=== PATIENT | male | born 1965 | race American Indian/Alaskan Native ===

== ENCOUNTER 2019-11-05 12:22 | Inpatient (IN) ==
--- NOTE | 2019-11-05 12:49 | Emergency Department Note ---
Upper Extremity HPI - General Chief Complaint: Extremity Injury, Upper Stated Complaint: infection in left hand Time Seen by Provider: 11/05/19 12:25 Source: patient Mode of arrival: ambulatory Limitations: no limitations - History of Present Illness HPI Narrative: 54-year-old male patient referred to the emergency department from the [facility] for worsening infection to the left hand. Patient is to be evaluated by the orthopedic surgeon (Dr. Ochoa) for possible surgical debridement later today. Patient tells me he injured his hand approximately week ago. During his initial work-up he was noted to have a large laceration over the third MCP and a mildly displaced dorsal cortical fracture, likely arise from the third metacarpal head. He was seen at the [facility] in follow-up today with worsening redness, swelling, purulent drainage, decreased range of motion, and pain. A review that medical note indicates that they contacted Dr. Ochoa for consultation. At that time he requested the patient be transferred to [facility] for surgical management. Upon arrival, patient complains of 9/10 pain to the injury site. He denies systemic fever, sweats, chills. He denies shortness of breath. He denies retrosternal chest pain or palpitations. He admits to some mild nausea but no vomiting. He denies diarrhea. He denies any radiculopathy to the affected hand. He denies any focal weakness. He admits to a past medical history of hypertension. He denies history of type 2 diabetes, dyslipidemia, or breathing issues. - Related Data Allergies Allergy/AdvReac Type Severity Reaction Status Date / Time No Known Drug Allergies Allergy Unverified 11/05/19 12:26 Review of Systems All systems ED: reviewed and negative except as stated. Past Medical History - Social History smoking status: Smokeless tobacco Physical Exam Limitations: no limitations General appearance: alert, in no apparent distress Shoulder: Present: normal inspection, full ROM Arm: Present: normal inspection, full ROM Elbow: Present: normal inspection, full ROM Forearm/Wrist: Present: normal inspection, full ROM Hand: Present: tenderness (Exquisite tenderness palpation throughout the entire left third MCP joint), swelling (Swelling extended throughout the third MCP joint up into the finger and into the dorsum of the hand), laceration (Small laceration measuring approximately 1 cm to the third MCP. Active purulent drainage noted), erythema (Considerable erythema extending from the dorsum of the left hand up into the middle finger and into the adjacent second and fourth MCP joints.). Absent: normal inspection, full ROM, ecchymosis, deformity, crepitus, dislocation Neuromotor: Normal: other (Considerably decreased range of motion to all fingers of the affected hand.) Neurosensory: Normal: other (Sensation grossly intact light touch throughout the left hand) Vascular: Normal: capillary refill (Less than 2 seconds), radial pulse (Present and bounding.) Neurological: Present: alert, oriented X3 Psychiatric: Present: normal affect, normal mood Skin: Present: warm, dry, other (Skin changes to the left hand is mentioned) Course Course Narrative: Patient was brought into the emergency department and a focused history and physical exam performed. Affected area was covered with gauze dressing. Warren DINH arrived at the bedside to help coordinate surgical care. IV was started and patient was given normal saline 1000 mL as a bolus. Routine presurgical labs were drawn. Patient was given Dilaudid 0.5 mg IVP. Review his laboratory studies show the following: CBC WBC 11.3, all others normal limits. BMP glucose 107, all others normal limits. C-reactive protein 8.1. ESR 19. After reviewing all the data I discussed these findings with the patient. He is currently resting comfortably on the emergency room rfrederick awaiting surgery. He is afebrile and stable his vital signs. We are going to continue to observe him in the emergency department until he is taken away for surgery. Once patient leaves emergency department he will be under the care of the hospitalist service (Dr. Sierra) and the orthopedic surgeon (Dr. Ochoa). All further treatment decisions and modalities will be carried out by them. Vital Signs Temperature 97.4 F 11/05/19 12:23 Pulse Rate 85 11/05/19 12:23 Respiratory Rate 18 11/05/19 12:23 Blood Pressure 159/89 11/05/19 12:23 Pulse Oximetry (%) 98 11/05/19 12:23 Temperature 97.4 F 11/05/19 12:23 Pulse Rate 85 11/05/19 12:23 Respiratory Rate 18 11/05/19 12:23 Blood Pressure 159/89 11/05/19 12:23 Pulse Oximetry (%) 98 11/05/19 12:23 Extremity Injury, Upper - Lab Data Lab results reviewed: Yes I reviewed the patient's lab results. Result diagrams: 11/05/19 12:40 11/05/19 12:40 Lab Results 11/05/19 11/05/19 Range/Units 12:40 12:40 WBC 11.3 H (4.50-11.00) K/mcL RBC 5.48 (4.63-6.08) M/mcL Hgb 15.1 (13.7-17.5) g/dL Hct 45.8 (40.1-51.0) % MCV 83.6 (80.0-100.0) fL MCH 27.6 (26.0-34.0) pg MCHC 33.0 (31.0-36.0) g/dL RDW 14.5 (11.5-14.5) % Plt Count 269 (140-440) K/mcL MPV 9.4 (7.4-10.4) fL Gran % 62.7 (38.0-78.0) % Lymph % (Auto) 27.9 (15.5-49.0) % [place]aine % (Auto) 7.1 (1.0-12.0) % Eos % (Auto) 1.9 (0.0-7.0) % Baso % (Auto) 0.4 (0.0-2.0) % Gran # 7.10 (1.80-8.00) K/mcL Lymph # (Auto) 3.16 (1.50-4.80) K/mcL [place]aine # (Auto) 0.81 (0.10-0.90) K/mcL Eos # (Auto) 0.22 (0.00-0.70) K/mcL Baso # (Auto) 0.05 (0.00-0.30) K/mcL Differential Comment * ESR 19 H (0-15) mm/hr Sodium 138 (133-145) mmol/L Potassium 3.8 (3.3-5.1) mmol/L Chloride 100 (96-108) mmol/L Carbon Dioxide 28 (22-30) mmol/L Anion Gap 10.0 (8-16) BUN 16 (6-20) mg/dl Creatinine 0.7 (0.7-1.2) mg/dl GFR Calculation 107 Glucose 107 H (70-105) mg/dL Calcium 8.7 (8.6-10.4) mg/dl C-Reactive Protein 8.1 H (0.0-0.8) mg/dl Disposition Pt seen by OTM CONSULTANT/PA only: Yes Clinical Impression: Infected hand, Fracture of metacarpophalangeal (MCP) joint Disposition: Xfer As Outpt/Obs ([facility]) Condition: Good Additional Instructions: Patient is go to be transferred down to the operating room for surgical debridement of the infected left hand. Afterward, patient will be admitted to the hospital. All further treatment decisions and modalities to be carried out by both the hospitalist service and the orthopedic surgeon. Referrals: No,PCP [Primary Care Provider] -
[2019-11-05] MEDS ORDERED: HYDROmorphone 2 MG/ML VIAL IM ONE (13:14)
[2019-11-05] MEDS ORDERED: 0.9 % SODIUM CHLORIDE 1,000 ML IV ONE (13:14)
[2019-11-05] MEDS ORDERED: HYDROmorphone 2 MG/ML VIAL IV ONE (13:25)
--- NOTE | 2019-11-05 13:41 | History and Physical Report ---
DATE OF ADMISSION: 11/05/2019 HISTORY OF PRESENT ILLNESS: The patient is a 54-year-old male who was seen in the emergency room at [facility] today for an infection of the left hand. He was evaluated by the emergency room and Dr. Ochoa was consulted for surgical intervention due to infectious tenosynovitis. Patient currently denies any chest pain, shortness of breath, fevers, chills, abdominal pain, bowel/bladder changes, or any other acute symptoms. PAST MEDICAL HISTORY: History of hypertension. ALLERGIES: NKDA. SURGICAL HISTORY: Multiple orthopaedic surgeries including an ORIF of the left fourth metacarpal. SOCIAL HISTORY: He uses chewing tobacco; no smoking history. ROS: 10 point system reviewed and negative except as documented in the HPI. PHYSICAL EXAMINATION: VITAL SIGNS: Temperature 97.4, pulse 85, respiratory rate 18, blood pressure 159/89, pulse ox 98% on room air. GENERAL: No acute distress. Patient is resting comfortably in bed. HEENT: Head: AT/NC. EENT: EOMs intact. Cranial nerves grossly II-XII intact. Throat: No lymphadenopathy, no thyromegaly. Uvula is midline. NECK: Supple, soft. No tenderness. CHEST: Clear to auscultation bilaterally. Symmetrical excursion. HEART: Regular rate and rhythm. No murmurs, rubs, or gallops. ABDOMEN: Soft, supple. No guarding, no tenderness, no masses, no hepatosplenomegaly. EXTREMITIES: Extremities normal except the left hand shows an infection of the third dorsal compartment of the hand. Over the MCP joint there is a laceration that extends approximately 3 cm in length with draining purulence. Erythema extends up to the PIP joint of the third finger and into the mid shaft of the metacarpal. Patient is able to extend and flex the finger at the PIP and DIP joints. He is neurovascularly intact throughout the entire hand and capillary refill is less than 2 seconds throughout the hand and including the third finger. RADIOGRAPHIC STUDIES: There is a small avulsion fracture of the dorsal portion of the third metacarpal at the MCP joint. No lytic changes, no other acute findings. ASSESSMENT: Infectious tenosynovitis of the third dorsal compartment of the left hand. PLAN: Patient is healthy and I explained the plan to the patient to include surgical intervention with irrigation and drainage of the third dorsal compartment. Dr. Ochoa will be the surgeon. Patient will be admitted afterwards for IV antibiotics and will be discharged to follow up with [facility] for postoperative care. He will be placed on antibiotics per Infectious Disease and the hospitalist. KT:fitz Job ID: [id number] Doc ID: [id number] Jac RIZVI
[2019-11-05 13:44] LABS: Blood Urea Nitrogen 16 mg/dl (6-20); C-Reactive Protein 8.1 mg/dl (0.0-0.8); Calcium 8.7 mg/dl (8.6-10.4); Carbon Dioxide 28 mmol/L (22-30); Chloride 100 mmol/L (96-108); Glomerular Filtration Rate 107; Glucose 107 mg/dL (70-105)
[2019-11-05 14:10] LABS: Basophils # (Auto) 0.05 K/mcL (0.00-0.30); Basophils % (Auto) 0.4 % (0.0-2.0); Eosinophils # (Auto) 0.22 K/mcL (0.00-0.70); Eosinophils % (Auto) 1.9 % (0.0-7.0); Granulocytes % (Auto) 62.7 % (38.0-78.0); Hematocrit 45.8 % (40.1-51.0); Hemoglobin 15.1 g/dL (13.7-17.5); Lymphocytes # (Auto) 3.16 K/mcL (1.50-4.80); Lymphocytes % (Auto) 27.9 % (15.5-49.0); Mean Cell Volume 83.6 fL (80.0-100.0); Mean Platelet Volume 9.4 fL (7.4-10.4); Monocytes # (Auto) 0.81 K/mcL (0.10-0.90); Monocytes % (Auto) 7.1 % (1.0-12.0); Platelet Count 269 K/mcL (140-440); RBC 5.48 M/mcL (4.63-6.08); Red Cell Distribution Width 14.5 % (11.5-14.5); WBC 11.3 K/mcL (4.50-11.00)
[2019-11-05 14:21] LABS: Erythrocyte Sedimentation Rate 19 mm/hr (0-15)
[2019-11-05] MEDS ORDERED: ceFAZolin 2 GM in DEXTROSE 5% IN WATER 50 ML IV SCH (15:30)
[2019-11-05 16:10] LABS: Appearance,Urine CLEAR; Color,Urine YELLOW; Culture Indicated,Urine NO; Glucose,Urine (UA) NEGATIVE (NEG); Ketones,Urine 20 mg/dL (NEG); Leukocyte Esterase,Urine NEG /uL (NEG); Nitrate,Urine NEG (NEG); Protein,Urine NEG (NEG); Specific Gravity,Urine 1.027 (1.000-1.035); Urine Blood NEG mg/dL (<0.03)
[2019-11-05 16:11] LABS: Ictotest,Urine POS (NEG)
[2019-11-05] MEDS ORDERED: LIDOCAINE HCL/PF 100 MG/5 ML SYRINGE IV ONE (16:15)
[2019-11-05] MEDS ORDERED: ONDANSETRON 4 MG/2 ML VIAL IV ONE (16:15)
[2019-11-05] MEDS ORDERED: PROPOFOL 200 MG/20 ML VIAL IV ONE (16:15)
[2019-11-05] MEDS ORDERED: KETAMINE 100 MG/ML ML IV ONE (16:15)
[2019-11-05] MEDS ORDERED: fentaNYL 100 MCG/2 ML VIAL IV ONE (16:15)
[2019-11-05] MEDS ORDERED: IPRATROPIUM/ALBUTEROL 3 ML AMPUL.NEB NEB PRN (17:00)
[2019-11-05] MEDS ORDERED: LACTATED RINGERS 1,000 ML IV SCH (17:00)
[2019-11-05] MEDS ORDERED: ACETAMINOPHEN 1,000 MG/100 ML BOTTLE IV ONE (17:00)
[2019-11-05] MEDS ORDERED: MEPERIDINE 25 MG/ML SYRINGE IV PRN (17:00)
[2019-11-05] MEDS ORDERED: KETOROLAC 30 MG/ML VIAL IV PRN (17:00)
[2019-11-05] MEDS ORDERED: HYDROmorphone 2 MG/ML VIAL IV PRN (17:00)
[2019-11-05] MEDS ORDERED: ONDANSETRON 4 MG/2 ML VIAL IV PRN ×2 (17:00→17:21)
[2019-11-05] MEDS ORDERED: BENZOCAINE/MENTHOL 1 LOZENGE PO PRN (17:21)
--- NOTE | 2019-11-05 17:29 | Discharge Summary ---
Ortho Discharge Plan - General - Patient Instructions Diet: Regular Diet Activity: activity as tolerated Dressing Care: Cover dressing in shower Additional Instructions: Patient is go to be transferred down to the operating room for surgical francisca ridement of the infected left hand. Afterward, patient will be admitted to the hospital. All further treatment decisions and modalities to be carried out by both the hospitalist service and the orthopedic surgeon. - Follow Up Plan Follow Up Appointments: No,PCP [Primary Care Provider] - Mike Ochoa MD [Physician] - 11/12/19 (Follow up [facility] 11/12/19) Disposition: Home, Self-Care Prognosis: Good Rehab Potential: Good I certify that the patient requires SNF services: No Overall status at discharge: patient is back to baseline (Discharge 11/08/19) - Orders For Discharge Prescriptions: Hydrocodone/APAP 7.5/325Mg [[place] 7.5-325Mg] 1 - 2 tab PO Q4-6HP PRN #65 tab PRN Reason: Pain Prescription Printed
--- NOTE | 2019-11-05 17:34 | Brief Operative Note ---
Date of procedure: 11/05/19 Pre-op diagnosis: L Hand dorsal abscess, Septic MF MCP Joint, MF Metacarpal Osteomyelitis Post-op diagnosis: same Procedure: 1. Debridement and irrigation left hand dorsal abscess 2. Debridement and irrigation left hand extensor tendon sheath 3. Debridement and irrigation left middle finger MCP joint 4. Debridement and irrigation left middle finger metacarpal osteomyelitis Grafts/Implants: No Anesthesia: GLMA Findings: As above Complications: none Surgeon: Mike Ochoa Estimated blood loss (cc): 5 Tourniquet Time (Minutes): 45 Specimens Removed/Pathology: other (Aerobic/Anaerobic cultures of left hand dorsal abscess and middle finger metacarpal osteomyelitis) Condition: stable Disposition: PACU
[2019-11-05] MEDS: fentaNYL 100 MCG/2 ML VIAL IV PRN ×2 (18:00→18:04)
[2019-11-05] MEDS: PIPERACILLIN SODIUM/TAZOBACTAM 4.5 GM in DEXTROSE 5% IN WATER 50 ML IV SCH (21:15)
[2019-11-05] MEDS: HYDROCODONE/APAP 7.5/325MG TABLET PO PRN (21:16)
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
[2019-11-05] MEDS ORDERED: NICOTINE 21 MG PATCH TOPICAL ONE (21:55)
[2019-11-05] MEDS: 0.9 % SODIUM CHLORIDE 10 ML SYRINGE IV SCH (23:03)
[2019-11-06] MEDS: HYDROCODONE/APAP 7.5/325MG TABLET PO PRN ×5 (01:10→19:34)
[2019-11-06] MEDS: PIPERACILLIN SODIUM/TAZOBACTAM 4.5 GM in DEXTROSE 5% IN WATER 50 ML IV SCH ×3 (04:09→21:59)
[2019-11-06] MEDS: 0.9 % SODIUM CHLORIDE 10 ML SYRINGE IV SCH ×3 (04:10→21:59)
--- NOTE | 2019-11-06 08:13 | XRay Report ---
HISTORY: Postop incision and drainage of the left hand FINDINGS: The hand is immobilized in a plaster cast which obscures fine bone detail. There is moderate soft tissue swelling along the dorsal side of the hand and there is a drain in this region of soft tissue thickening. There is a healed fracture in the fourth metacarpal. A metal plate is secured to the dorsal side of the bone using multiple screws. There is no bone erosion or periosteal elevation. Joint space between the scaphoid and lunate is abnormally widened, indicating disruption of the intercarpal ligament. Moderate size spur is seen in the head of the first metacarpal. The adjacent joint space is normal in width. Third metacarpal phalangeal joint space is narrowed. IMPRESSION: Cellulitis and along the dorsal aspect of the hand. No abscess is identified. Interpreted and Authenticated by: Martín Hull 11/06/19
--- NOTE | 2019-11-06 17:02 | Orthopedic Progress Note ---
Subjective Patient information: Note initiated : 11/06/19 at 5:00 pm Service Date, if different from initiated Date: [] Patient: Yony Gutierrez 54 y/o M admitted on 11/05/19 for I&D Left Hand. Chief Complaint: [] Principal diagnosis: Left Middle Finger Septic MCP Joint and Metacarpal Osteomyelitis Interval history: Patient doing well, good pain control, no fevers or chills, taking po well Objective Vital signs: Vital Signs Temp Pulse Pulse Resp BP Pulse Ox 11/06/19 16:00 99.8 F H 94 H 18 142/91 97 11/06/19 11:24 98.6 F 92 H 16 149/92 92 11/06/19 08:00 18 11/06/19 07:35 98.5 F 88 20 141/84 94 11/06/19 03:22 98.5 F 94 H 16 142/84 96 11/05/19 23:02 98.2 F 98 H 20 144/95 96 11/05/19 20:02 98.4 F 87 131/78 95 11/05/19 19:33 98 H 138/82 92 11/05/19 19:17 128/86 96 11/05/19 19:02 88 127/85 93 11/05/19 18:48 97 H 129/66 93 11/05/19 18:31 98.4 F 90 133/87 92 11/05/19 18:15 98.9 F 91 H 19 142/81 98 11/05/19 18:06 91 H 22 152/85 92 11/05/19 18:00 95 H 19 157/99 93 11/05/19 17:55 94 H 15 162/91 94 11/05/19 17:50 94 H 19 158/99 94 11/05/19 17:45 90 20 146/88 93 11/05/19 17:40 90 21 146/88 93 11/05/19 17:35 91 H 19 142/95 96 11/05/19 17:30 91 H 14 146/92 96 11/05/19 17:25 83 17 139/81 100 11/05/19 17:23 98.4 F 84 12 134/83 93 Intake and Output 11/06/19 11/06/19 11/06/19 05:59 13:59 21:59 Intake Total 1490 1040 50 Output Total 166 394 0495 Balance 590 190 -1450 Intake: IV 100 50 Zosyn 4.5 gm In Dextrose 5% in 100 50 Water 50 ml @ 100 mls/hr IV Q8H JAKI Rx#:[id number] Oral 1390 1040 Output: Void Amount 802 051 4091 Other: Meal Lunch Lunch Percent of Meal Consumed 100% 75% Feeding Ability Independent Independent Urine Appearance Clear Clear Clear Urine Color Dark Yellow Dark Yellow Light Fiona Urine Odor Normal Strong Weight 228 lb Patient Weight 11/07/19 05:59 Weight 228 lb Intake & Output: Intake & Output 11/06/19 11/06/19 11/06/19 05:59 13:59 21:59 Intake Total 1490 1040 50 Output Total 303 905 9301 Balance 590 190 -1450 Weight 228 lb Intake: IV 100 50 Zosyn 4.5 gm In Dextrose 5% in 100 50 Water 50 ml @ 100 mls/hr IV Q8H JAKI Rx#:[id number] Oral 1390 1040 Output: Void Amount [phone] Other: Meal Lunch Lunch Percent of Meal Consumed 100% 75% Feeding Ability Independent Independent Urine Appearance Clear Clear Clear Urine Color Dark Yellow Dark Yellow Light Fiona Urine Odor Normal Strong Dressing: Yes clean, Yes dry, Yes intact, Yes splint in place Neurological exam IM: Yes oriented X3, Yes neurovascular intact - Labs CBC & BMP: 11/05/19 12:40 11/05/19 12:40 Labs: 11/05/19 12:40 Hgb 15.1 Hct 45.8 Assessment and Plan - Narrative A/P Narrative: Assessment: POD#1 s/p I&D left dorsal hand abscess, suppurative extensor tenosynovitis, middle finger septic MCP joint and middle finger metacarpal acute osteomyelitis, doing well. Improved pain control. Tolerating IV antibiotics Plan: 1. IV antibiotics as per Hospitalist 2. Continue left hand and finger RIM exercises 3. Dressing change and drain D/C 11/08/19
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
[2019-11-06] MEDS ORDERED: DOCUSATE SODIUM 100 MG CAPSULE PO PRN (21:00)
[2019-11-06] MEDS ORDERED: MAGNESIUM HYDROXIDE 30 ML ORAL.SUSP PO PRN (22:48)
[2019-11-07] MEDS: HYDROCODONE/APAP 7.5/325MG TABLET PO PRN ×6 (00:29→22:30)
[2019-11-07] MEDS: PIPERACILLIN SODIUM/TAZOBACTAM 4.5 GM in DEXTROSE 5% IN WATER 50 ML IV SCH ×3 (06:03→22:30)
[2019-11-07] MEDS: 0.9 % SODIUM CHLORIDE 10 ML SYRINGE IV SCH ×3 (06:03→22:31)
[2019-11-07 06:56] LABS: ALT/SGPT 31 U/l (0-40); AST/SGOT 20 U/l (0-37); Albumin 3.3 gm/dL (3.2-5.2); Albumin/Globulin Ratio 0.9 (1.0-2.3); Alkaline Phosphatase 67 U/L (39-117); Bilirubin,Total 0.5 mg/dL (0.0-1.0); Blood Urea Nitrogen 10 mg/dl (6-20); Calcium 8.9 mg/dl (8.6-10.4); Carbon Dioxide 29 mmol/L (22-30); Chloride 97 mmol/L (96-108); Globulin 3.5 gm/dL (2.2-3.7); Glomerular Filtration Rate 96; Glucose 110 mg/dL (70-105)
[2019-11-07 07:42] LABS: Basophils # (Auto) 0.05 K/mcL (0.00-0.30); Basophils % (Auto) 0.4 % (0.0-2.0); Eosinophils # (Auto) 0.25 K/mcL (0.00-0.70); Granulocytes % (Auto) 64.2 % (38.0-78.0); Hematocrit 45.1 % (40.1-51.0); Hemoglobin 14.5 g/dL (13.7-17.5); Lymphocytes # (Auto) 2.93 K/mcL (1.50-4.80); Lymphocytes % (Auto) 23.2 % (15.5-49.0); Mean Cell Volume 85.1 fL (80.0-100.0); Mean Corpuscular HGB Conc 32.2 g/dL (31.0-36.0); Monocytes # (Auto) 1.29 K/mcL (0.10-0.90); Monocytes % (Auto) 10.2 % (1.0-12.0); Platelet Count 379 K/mcL (140-440); Red Cell Distribution Width 14.9 % (11.5-14.5); WBC 12.6 K/mcL (4.50-11.00)
[2019-11-07] MEDS: LISINOPRIL 10 MG TABLET PO SCH (08:53)
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
--- NOTE | 2019-11-07 12:25 | Orthopedic Progress Note ---
Subjective Patient information: Note initiated : 11/07/19 at 12:21 pm Service Date, if different from initiated Date: [] Patient: Yony Gutierrez 54 y/o M admitted on 11/05/19 for I&D Left Hand. Chief Complaint: [] Principal diagnosis: Left Middle Finger Septic MCP Joint and Metacarpal Osteomyelitis Interval history: Patient doing well, improved pain control, up ambulating, no fevers or chills. Eating lunch Objective Vital signs: Vital Signs Temp Pulse Resp BP Pulse Ox 11/07/19 08:00 98.3 F 79 18 117/74 97 11/07/19 04:05 98.2 F 83 16 122/78 97 11/06/19 22:40 98.8 F 105 H 20 133/90 96 11/06/19 18:57 98.6 F 103 H 20 164/91 95 11/06/19 16:00 99.8 F H 94 H 18 142/91 97 Intake and Output 11/06/19 11/07/19 11/07/19 21:59 05:59 13:59 Intake Total 50 750 50 Output Total 1900 700 200 Balance -1850 50 -150 Intake: IV 50 50 50 Zosyn 4.5 gm In Dextrose 5% in 50 50 50 Water 50 ml @ 100 mls/hr IV Q8H [facility] Rx#:[id number] Oral 700 Output: Void Amount 1900 700 200 Other: Meal Dinner Percent of Meal Consumed 100% Feeding Ability Independent Urine Appearance Clear Clear Clear Urine Color Light Fiona Bright Yellow Bright Yellow Urine Odor Strong Normal Normal Weight 240 lb Intake & Output: Intake & Output 11/06/19 11/07/19 11/07/19 21:59 05:59 13:59 Intake Total 50 750 50 Output Total 1900 700 200 Balance -1850 50 -150 Weight 240 lb Intake: IV 50 50 50 Zosyn 4.5 gm In Dextrose 5% in 50 50 50 Water 50 ml @ 100 mls/hr IV Q8H [facility] Rx#:[id number] Oral 700 Output: Void Amount 1900 700 200 Other: Meal Dinner Percent of Meal Consumed 100% Feeding Ability Independent Urine Appearance Clear Clear Clear Urine Color Light Fiona Bright Yellow Bright Yellow Urine Odor Strong Normal Normal Dressing: Yes clean, Yes dry, Yes intact, Yes splint in place Weight bearing status: full Neurological exam IM: Yes oriented X3, Yes motor sensory intact, Yes neurovascular intact - Labs CBC & BMP: 11/07/19 04:54 11/07/19 04:54 Labs: 11/07/19 11/05/19 04:54 12:40 Hgb 14.5 15.1 Hct 45.1 45.8 Assessment and Plan - Narrative A/P Narrative: Assessment: POD#2 s/p I&D left dorsal hand abscess, suppurative extensor tenosynovitis, middle finger septic MCP joint and middle finger metacarpal acute osteomyelitis, doing well. Improved pain control. Tolerating IV antibiotics Plan: 1. IV antibiotics as per Hospitalist 2. Continue left hand and finger ROM exercises 3. Dressing change and drain D/C 11/08/19 4. Awaiting Hospitalist recommendations on discharge antibiotic regimen
[2019-11-07] MEDS: NICOTINE 14 MG PATCH TOPICAL SCH (12:48)
[2019-11-08] MEDS: HYDROCODONE/APAP 7.5/325MG TABLET PO PRN ×6 (02:41→23:54)
[2019-11-08] MEDS: 0.9 % SODIUM CHLORIDE 10 ML SYRINGE IV SCH ×4 (05:23→21:20)
[2019-11-08] MEDS: PIPERACILLIN SODIUM/TAZOBACTAM 4.5 GM in DEXTROSE 5% IN WATER 50 ML IV SCH ×2 (05:23→13:44)
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
[2019-11-08] MEDS: NICOTINE 14 MG PATCH TOPICAL SCH (09:01)
[2019-11-08] MEDS: LISINOPRIL 10 MG TABLET PO SCH (09:01)
--- NOTE | 2019-11-08 16:09 | Orthopedic Progress Note ---
Subjective Patient information: Note initiated : 11/08/19 at 4:05 pm Service Date, if different from initiated Date: [] Patient: Yony Gutierrez 54 y/o M admitted on 11/05/19 for I&D Left Hand. Chief Complaint: [] Principal diagnosis: Left Middle Finger Septic MCP Joint and Metacarpal Osteomyelitis Interval history: No changes, good pain control Objective Vital signs: Vital Signs Temp Pulse Resp BP Pulse Ox 11/08/19 12:00 98.0 F 90 148/80 96 11/08/19 08:00 98.4 F 94 H 20 152/89 96 11/08/19 04:00 98.1 F 89 16 130/79 99 11/07/19 23:18 97.7 F 88 18 154/87 96 11/07/19 19:49 98.4 F 91 H 18 168/99 95 Intake and Output 11/08/19 11/08/19 11/08/19 05:59 13:59 21:59 Intake Total 900 640 Output Total 625 550 Balance 275 90 Intake: IV 100 Zosyn 4.5 gm In Dextrose 5% in 100 Water 50 ml @ 100 mls/hr IV Q8H [facility] Rx#:[id number] Oral 800 640 Output: Void Amount 625 550 Other: Meal Breakfast Percent of Meal Consumed 100% Feeding Ability Assist with Tray Set Up Urine Appearance Sediment Urine Color Light Fiona Urine Odor Strong Intake & Output: Intake & Output 11/08/19 11/08/19 11/08/19 05:59 13:59 21:59 Intake Total 900 640 Output Total 625 550 Balance 275 90 Intake: IV 100 Zosyn 4.5 gm In Dextrose 5% in 100 Water 50 ml @ 100 mls/hr IV Q8H [facility] Rx#:[id number] Oral 800 640 Output: Void Amount 625 550 Other: Meal Breakfast Percent of Meal Consumed 100% Feeding Ability Assist with Tray Set Up Urine Appearance Sediment Urine Color Light Fiona Urine Odor Strong Incision: Yes healing, Yes draining Incision clean and dry: No (Some hemorrhagic drainage) Dressing: Yes clean, Yes dry, Yes intact, Yes splint in place Weight bearing status: full Neurological exam IM: Yes oriented X3, Yes motor sensory intact, Yes neurovascular intact - Labs CBC & BMP: 11/07/19 04:54 11/07/19 04:54 Labs: 11/07/19 11/05/19 04:54 12:40 Hgb 14.5 15.1 Hct 45.1 45.8 Assessment and Plan - Narrative A/P Narrative: Assessment: POD#3 s/p I&D left dorsal hand abscess, suppurative extensor tenosynovitis, middle finger septic MCP joint and middle finger metacarpal acute osteomyelitis, drain intact with decreased edema and no significant erythema, some hemorrhagic drainage, doing well. Improved pain control. Tolerating IV antibiotics Plan: 1. IV antibiotics as per Hospitalist 2. Continue left hand and finger ROM exercises 3. D/C drain 4. Dressing change today 5. Okay to D/C from Hand stand point 6. Follow up [facility] on 11/12/19
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
--- NOTE | 2019-11-08 18:17 | XRay Report ---
CLINICAL INFORMATION: PICC PLACEMENT COMPARISON: None. FINDINGS: Heart size, mediastinum and pulmonary vessels are normal for technique. Lungs are clear. Right PICC line tip overlies the mid right atrium IMPRESSION: Right PICC line overlies the mid right atrium. Suggest 2 cm withdrawal. No acute disease Interpreted and Authenticated by: Leon Reyna 11/08/19
[2019-11-08] MEDS ORDERED: 0.9 % SODIUM CHLORIDE 10 ML SYRINGE IV PRN (18:41)
[2019-11-08] MEDS ORDERED: cefTRIAXone 2 GM VIAL ONE (19:02)
[2019-11-08] MEDS: cefTRIAXone 2 GM in DEXTROSE 5% IN WATER 50 ML IV SCH (19:07)
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
[2019-11-09] MEDS: 0.9 % SODIUM CHLORIDE 10 ML SYRINGE IV SCH ×2 (04:10→09:12)
[2019-11-09] MEDS: HYDROCODONE/APAP 7.5/325MG TABLET PO PRN ×2 (07:02→10:59)
[2019-11-09] MEDS: NICOTINE 14 MG PATCH TOPICAL SCH (09:12)
[2019-11-09] MEDS: LISINOPRIL 10 MG TABLET PO SCH (09:12)
[2019-11-09] MEDS: cefTRIAXone 2 GM in DEXTROSE 5% IN WATER 50 ML IV SCH (09:12)
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
--- NOTE | 2019-11-09 19:58 | Infectious Disease Prog Note ---
Subjective Patient information: Note initiated : 11/09/19 at 7:49 pm Service Date, if different from initiated Date: [] Patient: Yony Gutierrez 54 y/o M admitted on 11/05/19 for I&D Left Hand. Chief Complaint: [] Principal diagnosis: Left Middle Finger Septic MCP Joint and Metacarpal Osteomyelitis Interval history: Pt doing fine. denies any fever, chills, n/v, diarrhea. Comfortable on pain meds. Got his PICC line last night. Objective Objective Narrative: ao x 3, in nad right arm PICC line site with no redness, swelling, tenderness left hand wrapped in surgical dressing, no soakage - Vital Signs Vital signs: Vital Signs Temp Pulse Resp BP BP Pulse Ox 11/09/19 14:02 36.8 C 86 18 136/80 97 11/09/19 12:00 36.8 C 86 18 161/66 97 11/09/19 08:00 36.8 C 93 H 18 152/97 96 11/09/19 02:52 36.9 C 88 20 145/84 98 11/08/19 23:36 36.8 C 78 16 140/79 97 Intake and Output 11/09/19 11/09/19 11/09/19 05:59 13:59 21:59 Intake Total 0 Output Total 300 600 Balance -300 -600 Intake: Oral 0 Output: Void Amount 300 600 Other: Urine Appearance Clear Urine Color Dark Yellow Urine Odor Normal Intake & Output: Intake & Output 11/09/19 11/09/19 11/09/19 05:59 13:59 21:59 Intake Total 0 Output Total 300 600 Balance -300 -600 Intake: Oral 0 Output: Void Amount 300 600 Other: Urine Appearance Clear Urine Color Dark Yellow Urine Odor Normal - Lab 11/07/19 04:54 11/07/19 04:54 Most recent lab results Calcium 8.9 mg/dl (8.6-10.4) 11/07/19 04:54 Microbiology 11/05/19 16:45 Bone - Left Third Gram Stain - Final 11/05/19 16:45 Bone - Left Third Anaerobic Culture - Preliminary 11/05/19 16:44 Hand - Left Gram Stain - Final 11/05/19 16:44 Hand - Left Anaerobic Culture - Preliminary 11/05/19 16:44 Hand - Left Gram Stain - Final 11/05/19 16:44 Hand - Left Tissue Culture - Preliminary Alpha strep 11/05/19 16:46 Bone - Left Third Gram Stain - Final 11/05/19 16:46 Bone - Left Third Tissue Culture - Preliminary Alpha strep 11/05/19 16:43 Hand - Left Gram Stain - Final Assessment and Plan - Narrative A/P Narrative: A: 1. Left hand middle finger distal metacarpal osteomyelitis and Left hand middle finger septic metacarpophalangeal joint: bone Cx and deep tissue growing Strep mitis-oralis, Hemophilus influenza (beta lactamase neg) 2. Left hand suppurative extensor tenosynovitis Pt is POD 3 after: 1. Debridement and irrigation of the left hand dorsal abscess. 2. Debridement and irrigation of left hand extensor tendon sheath. 3. Debridement and irrigation of the left middle finger septic metacarpophalangeal joint. 4. Debridement and irrigation of the left hand distal middle finger metacarpal acute osteomyelitis. Recommendations: - Continue IV Ceftriaxone 2 gm q24 hrs through PICC line (rt arm) for 4 week course with tentative stop date of 12/04/2019. ID clinic f/u in 2 weeks - Follow up labs: weekly CBC, BMP ESR and CRP every 2 weeks - pt counseled to elevate his left hand to help decrease swelling David Lin MD Infectious diseases
== END 2019-11-09 14:02 | disposition home or self-care (01) | DRG 982 ==
LOC: ED 12:22 → SSSU 15:20 → MEDSUR 18:30
PROVIDERS: ADMIT Orthopaedic Surgery Hand Surgery; ATTEND Internal Medicine